=== PATIENT | male | born 1985 | race Caucasian/White ===

== ENCOUNTER 2018-07-16 15:54 | Emergency (ER) | payer BC ==
[2018-07-16 16:34] VITALS: BP 155/88
[2018-07-16] MEDS ORDERED: Tetracaine 0.5% OPTH.SOL 4 ML* 1 DROP BTL RIGHT EYE ONE (16:49)
[2018-07-16] MEDS ORDERED: Fluorescein Sodium TOPICAL* 1 MG TEST STRIP OPHTHALMIC ONE (16:49)
[2018-07-16] MEDS ORDERED: Tetan/Diph/Pertus SYR(Tdap)* 0.5 ML SYR(BOOSTRIX) use SYR IM ONE (16:56)
--- NOTE | 2018-07-16 17:09 | UC ---
Eye Complaint HPI - HPI Summary HPI Summary: 33-year-old male presents for a scratch to right side of his face over his right eye. States he was processing a live turkey approximately 30 minutes ago and was scratched by the yoselin from his right forehead to the right cheek. States he immediately washed the wound with soap and water. Unsure of last tetanus. Denies any eye pain, visual disturbances, foreign body sensation, photophobia, or discharge. - History of Current Complaint Chief Complaint: UCEye Stated Complaint: SCRATCH ON EYE Time Seen by Provider: 07/16/18 16:38 Hx Obtained From: Patient Pain Intensity: 0 - Allergies/Home Medications Allergies/Adverse Reactions: Allergies Allergy/AdvReac Type Severity Reaction Status Date / Time No Known Allergies Allergy Verified 07/16/18 16:34 Home Medications: Home Medications NK [No Home Medications Reported] 07/16/18 [History Confirmed 07/16/18] PMH/Surg Hx/FS Hx/Imm Hx Previously Healthy: Yes - Denies significant PMH - Surgical History Surgical History: Yes Surgery Procedure, Year, and Place: wisdom teeth pulled - Social History Occupation: Employed Full-time Lives: With Family Alcohol Use: Rare Substance Use Type: None Smoking Status (MU): Never Smoked Tobacco Review of Systems All Other Systems Reviewed And Are Negative: Yes Constitutional: Negative: Fever, Chills Skin: Positive: Other - See HPI (diagram) Eyes: Positive: Other - See HPI. Negative: Blurred Vision, Diplopia, Drainage, Eye Redness, Photophobia Is Patient Immunocompromised?: No Physical Exam - Summary Physical Exam Summary: GENERAL APPEARANCE: Well developed, well nourished, alert and cooperative, and appears to be in no acute distress. EYES: PERRL, EOM intact. Vision is grossly intact. No gross injury or FB noted to right eye. Tetracaine and fluorosceine instilled into right eye and examined under magnification with Wood's lamp. No fluorosceine uptake, corneal abrasion, penetrating injury, or FB noted. CARDIAC: Normal S1 and S2. No S3, S4 or murmurs. Rhythm is regular. There is no peripheral edema, cyanosis or pallor. Extremities are warm and well perfused. Capillary refill is less than 2 seconds. LUNGS: Clear to auscultation and percussion without rales, rhonchi, wheezing or diminished breath sounds. ABDOMEN: Positive bowel sounds. Soft, nondistended, nontender. No guarding or rebound. No masses or hepatosplenomegally. MUSKULOSKELETAL: ROM intact to all extremities. No joint erythema or tenderness. Normal muscular development. Normal gait. SKIN: Superficial linear abrasion extending from right forehead to right cheek. See diagram. Triage Information Reviewed: Yes Vital Signs: Initial Vital Signs Temp 97.8 F 07/16/18 16:31 Pulse 102 07/16/18 16:31 Resp 20 07/16/18 16:31 BP 155/88 07/16/18 16:31 Pulse Ox 97 07/16/18 16:31 Vital Signs Reviewed: Yes Images Head: 1 - Superficial linear abrasion Eye Complaint Course/Dx - Course Course Of Treatment: 33-year-old male presents for a scratch to right side of his face over his right eye. States he was processing a live turkey approximately 30 minutes ago and was scratched by the yoselin from his right forehead to the right cheek. States he immediately washed the wound with soap and water. Unsure of last tetanus. Denies any eye pain, visual disturbances, foreign body sensation, photophobia, or discharge. - Differential Dx/Diagnosis Differential Diagnosis/HQI/PQRI: Corneal Abrasion, Foreign Body, Penetrating Injury Provider Diagnosis: Superficial abrasion Discharge - Sign-Out/Discharge Documenting (check all that apply): Patient Departure All imaging exams completed and their final reports reviewed: No Studies - Discharge Plan Condition: Stable Disposition: HOME Patient Education Materials: Abrasion (ED) Referrals: Jose Martin Craft MD [Primary Care Provider] - If Needed Additional Instructions: Your eye exam in the clinic today showed no evidence of injury. You have a superficial abrasion to the forehead and cheek. Cleanse the wound gently with a mild soap and water at least twice a day. Apply a thin layer of Bacitracin ointment. Your tetanus was updated. Notify your primary care provider so they can update your records. Follow up with primary care provider as needed. Seek immediate medical attention if you develop fever greater than 100.5 F, have increased pain, redness, swelling of the wound, pus draining from the wound , eye pain, swelling, eye drainage, visual changes, or loss of vision. - Billing Disposition and Condition Condition: STABLE Disposition: Home
== END 2018-07-16 17:21 | disposition home or self-care (01) ==
LOC: UCEAST 15:54
DX: S00.81XA Abrasion of other part of head, initial encounter (principal); W61.42XA Struck by turkey, initial encounter; Y92.9 Unspecified place or not applicable
CPT/HCPCS: 90471; 90715; 99211; A9270-GY; G0463